=== PATIENT | male | born 1975 | race Caucasian/White ===

== ENCOUNTER 2020-03-18 07:15 | Emergency (ER) | payer MEDICAID ==
[~2020-03-18] VITALS: Ht 175.3 cm; Wt 65.9 kg
[2020-03-18 07:47] VITALS: BP 119/74
--- NOTE | 2020-03-18 08:03 | NUR ---
PARENTS: LOU STONER AND CAMPOS HERBIE CONTACT NUMBER: [phone] (DAD) AND [phone] (MOM) MOTHER STATES THAT KARLA HAS BEEN LIVING WITH HIS PARENTS IN [facility] FOR THE PAST 6-8 MONTHS. STATES PATIENT IS HAVING CUSTODY ISSUES WITH HIS CHILDREN.
[2020-03-18 08:48] LABS: URINE AMPHETAMINE SCREEN NEGATIVE (Neg); URINE BARBITUATE SCREEN NEGATIVE (Neg); URINE BENZODIAZEPINES SCREEN NEGATIVE (Neg); URINE CANNABINOID SCREEN POSITIVE (Neg); URINE COCAINE SCREEN NEGATIVE (Neg); URINE METHADONE SCREEN NEGATIVE (Neg); URINE OPIATE SCREEN NEGATIVE (Neg); URINE PHENCYCLIDINE SCREEN NEGATIVE (Neg)
[2020-03-18 09:10] LABS: BASOPHILS % (AUTO) 0.2 % (0-1); EOSINOPHILS % (AUTO) 0.1 % (0-6); HEMATOCRIT 45.4 % (42.0-52.0); HEMOGLOBIN 15.3 g/dl (14.0-17.9); MEAN CORPUSCULAR HEMOGLOBIN 31.1 PG (27.0-31.0); MEAN CORPUSCULAR HGB CONC 33.8 g/dL (33.0-36.5); MEAN CORPUSCULAR VOLUME 92.1 FL (78-98); MEAN PLATELET VOLUME 9.2 FL (7.4-10.4); MONOCYTES # (AUTO) 1.2 X10'3 (0-0.9); MONOCYTES % (AUTO) 7.8 % (2-12); NEUTROPHILS # (AUTO) 13.8 X10'3 (1.8-7.7); NEUTROPHILS % (AUTO) 85.9 % (42-75); PLATELET COUNT 199 X10'3 (140-440); RED BLOOD COUNT 4.93 X10'6 (4.70-6.10); RED CELL DISTRIBUTION WIDTH 13.2 % (11.5-14.5)
[2020-03-18] MEDS ORDERED: LORazepam 1 MG tablet PO ONE (09:20)
[2020-03-18] MEDS ORDERED: ibuprofen tablet 400 MG TABLET PO ONE (09:20)
--- NOTE | 2020-03-18 09:20 | NUR ---
Discussed pt's c/o pain with danyel warren; new order for ibuprofen 400mg and ativan 1mg po received.
[2020-03-18 09:24] LABS: ALANINE AMINOTRANSFERASE 22 U/L (12-78); ALBUMIN 4.4 G/DL (3.4-5.0); ALBUMIN/GLOBULIN RATIO 1.3 (1.1-1.5); ALKALINE PHOSPHATASE 42 IU/L (46-116); ANION GAP 11 (8-16); ASPARTATE AMINO TRANSFERASE 25 U/L (10-37); BILIRUBIN,TOTAL 0.8 MG/DL (0.1-1.0); BLOOD UREA NITROGEN 13 MG/DL (7-18); BUN/CREATININE RATIO 11.5 (5.4-32.0); CALCIUM 9.8 MG/DL (8.5-10.1); CHLORIDE 104 MMOL/L (99-107); CREATININE 1.13 MG/DL (0.60-1.10); GLUCOSE 71 MG/DL (70-104); SODIUM 141 MMOL/L (135-145); TOTAL CARBON DIOXIDE 26.3 MMOL/L (24-32); TOTAL PROTEIN 7.9 G/DL (6.4-8.2); eGFR 70 ML/MIN
[2020-03-18 09:28] LABS: ETHANOL < 0.010 GM/DL (0.0-0.010)
--- NOTE | 2020-03-18 09:36 | NUR ---
PATIENT IS AGITATED AND STATES "I DID NOT DO ANYTHING WRONG" AND REQUESTING TO LEAVE. PATIENT INFORMED AND REINFORCED THAT HE IS ON MENTAL HEALTH HOLD AND WILL BE EVALUATED BY [facility] TODAY. PATIENT REFUSES TO TAKE MEDS THAT WERE ORDERED AND CONTINUES TO STATE THAT HE IS FINE. GETTING OUT OF BED AND STANDING IN DOORWAY FREQUENTLY. SANDWICH AND JUICE GIVEN TO PATIENT.
--- NOTE | 2020-03-18 09:40 | NUR ---
DR. VELIZ NOTIFIED THAT PATIENT IS INCREASINGLY AGITATED AND REFUSES PO MEDS. DR. VELIZ AWARE AND NO NEW ORDERS RECEIVED AT THIS TIME.
[2020-03-18] MEDS ORDERED: TETanus/Pertussis (Acell)/Diphther VAC/PF (Tdap-Adult) 0.5ml syringe IMVAC ONE (09:45)
--- NOTE | 2020-03-18 12:30 | NUR ---
sitting up coloring, very talkative, no signs of distress
[2020-03-18] MEDS ORDERED: NO HOME MEDS (12:50)
--- NOTE | 2020-03-18 13:30 | NUR ---
gave water, eating lunch
--- NOTE | 2020-03-18 14:00 | NUR ---
tranferred phone call from mom
--- NOTE | 2020-03-18 14:09 | NUR ---
EX CALLED NURSING STATION SAYS PT IS REPETEDLY CALLING HER. EX GAVE MOTHERS PHONE NUMBER [phone]
[2020-03-18] MEDS ORDERED: LORazepam 2 mg/ml vial IM ONE (14:20)
[2020-03-18] MEDS ORDERED: haloperidol lactate 5mg/ml inj IM ONE (14:20)
[2020-03-18] MEDS ORDERED: diphenhydrAMINE 50 mg/ml inj IM ONE (14:20)
--- NOTE | 2020-03-18 14:31 | NUR ---
security bedside, pt refusing to allow im med administration. requiring thier assistance to administer. [facility] was engaged w/ pt who became agitated and tried to elope. all previous attempts to get pt to take PO meds failed while pt continued to escalate with no new orders other received.
--- NOTE | 2020-03-18 15:30 | NUR ---
resting comfortably on back
--- NOTE | 2020-03-18 16:10 | NUR ---
RECEIVED CALL FROM [facility] REQUESTING MORE LAB WORK AND COVID TEST. WILL NOTIFY MD AND FAX RESULTS TO [facility].
[2020-03-18 17:00] LABS: CLARITY,URINE CLEAR (Clear); COLOR,URINE YELLOW (Yellow); GLUCOSE, URINE NEGATIVE (Neg); KETONES,URINE TRACE mg/dl (Neg); LEUKOCYTE ESTERASE ,URINE NEGATIVE (Neg); NITRITES, URINE NEGATIVE (Neg); OCCULT BLOOD,URINE TRACE-INTACT (Neg); PROTEIN,URINE 30 mg/dl (Neg); UROBILINOGEN,URINE 0.2 E.U/dL (0.2-1.0)
[2020-03-18 17:04] LABS: UA COLLECTION TYPE CLN CATCH MIDSTREAM
[2020-03-18 17:05] LABS: AMORPHOUS URATES 1+; BACTERIA,URINE NONE SEEN /HPF (Neg); COARSE GRANULAR CAST 0-3 /LPF (NEGATIVE); MUCUS STRANDS FEW /LPF (Neg); RBC,URINE 0-2 /HPF (0-2); SQUAMOUS EPITHELIAL CELL,UR NONE SEEN /LPF (FEW); WBC,URINE NONE SEEN /HPF (0-4)
--- NOTE | 2020-03-18 17:10 | NUR ---
RESTING ON LEFT SIDE.
--- NOTE | 2020-03-18 18:09 | NUR ---
LAB RESULTS FAXED TO [facility].
--- NOTE | 2020-03-18 18:44 | NUR ---
[facility] CALLED, ACCEPTED TO [facility] BY KVNG MCCARTHY
== END 2020-03-18 19:52 ==
LOC: ER 07:15
DX: F91.8 Other conduct disorders (principal); F29 Unspecified psychosis not due to a substance or known physiological condition; F17.200 Nicotine dependence, unspecified, uncomplicated; F12.10 Cannabis abuse, uncomplicated; Z20.828 Contact with and (suspected) exposure to other viral communicable diseases
CPT/HCPCS: 36415; 80053; 80305; 80320; 81001; 84443; 85025; 87635; 96372; 99285; C9803; J1200; J1630; J2060